=== PATIENT | female | born 1930 | race Caucasian/White ===

== ENCOUNTER 2017-07-03 15:46 | Emergency (ER) | payer MEDICARE, BC ==
[~2017-07-03] VITALS: Wt 74.2 kg
[~2017-07-03 15:46] MED LIST: ALBU8.5H3 INH; AMLO-145 PO; AZIT250T94 PO; BENZ100C70 PO; DONE5TAB7 PO; GUAI118L22 PO; HYDR12.58 PO; MEMA5TAB PO; PRED20TA PO
--- NOTE | 2017-07-03 16:27 | ERD ---
ER Documentation Chief Complaint Chief Complaint u/a and cultures done 07/01 shows UTI, no symptoms but wants abx HPI This is a very pleasant 86-year-old female with a history of hypertension and high cholesterol that presents to the emergency department brought in by her two daughters after outpatient lab work had been obtained on July 01, 2017, 2 days prior to arrival. The patient's primary care physician phone the patient indicated she needed to receive antibiotics. The patient has been experiencing frequency urgency and dysuria for the past 5 days. Denies any hematuria. A urinalysis and urine culture have been performed on an outpatient basis and the results arrived today. The patient had pyuria with 20-25 white blood cells positive leukocytes and positive nitrates and the urinalysis and urine culture that was susceptible to ceftriaxone. The patient has remained afebrile with no shaking or chills. She denies any shortness of breath at rest or exertion. She has had no chest pain or pressure that radiates to the neck arm back or jaw. She denies any abdominal pain. ROS All systems reviewed and are negative except as per history of present illness. Medications Home Meds Active Scripts Albuterol Sulfate* (Proair HFA*) 8.5 Gm Hfa.aer.ad, 2 PUFF INH Q4, #1 INHALER Prov:DEEPA SHERMAN 09/23/15 Benzonatate* (Tessalon Perle*) 100 Mg Capsule, 100 MG PO TID, #20 CAP Prov:DEEPA SHERMAN 09/23/15 Prednisone* (Prednisone*) 20 Mg Tab, 60 MG PO DAILY for 5 Days, TAB Prov:DEEPA SHERMAN 09/23/15 Azithromycin* (Zithromax*) 250 Mg Tablet, 250 MG PO .ERIC DIRECTED, #6 TAB TAKE 500 MG (2 TABS) THE FIRST DAY THEN 250 MG (1 TAB) DAYS 2-5 Prov:DEEPA SHERMAN 09/23/15 Reported Medications Memantine* (Namenda*) 5 Mg Tablet, 5 MG PO DAILY, TAB 08/31/14 Amlodipine Besylate* (Amlodipine Besylate*) 5 Mg Tablet, 5 MG PO DAILY, TAB 08/31/14 Guaifenesin/Codeine Phosphate (CHERATUSSIN AC SYRUP) 118 Ml Liquid, 2 TSP PO TID 08/31/14 Donepezil* (Donepezil*) 5 Mg Tablet, 5 MG PO DAILY, TAB 08/31/14 Hydrochlorothiazide* (Hydrochlorothiazide*) 12.5 Mg Tablet, 12.5 MG PO DAILY, TAB 08/31/14 Allergies Allergies: Coded Allergies: No Known Allergy (Verified , 07/03/17) PMhx/Soc History of Surgery: Yes (appendectomy ) Anesthesia Reaction: No Hx Neurological Disorder: No Hx Respiratory Disorders: No Hx Cardiac Disorders: Yes (HTN. ) Hx Psychiatric Problems: No Hx Miscellaneous Medical Probl: No Hx Alcohol Use: No Hx Substance Use: No Hx Tobacco Use: No Smoking Status: Never smoker Physical Exam Vitals Vital Signs Date Time Temp Pulse Resp B/P Pulse Ox O2 Delivery O2 Flow Rate FiO2 07/03/17 15:48 98.2 83 12 165/70 98 Physical Exam Constitutional:Well-developed. Well-nourished. HEENT:Normocephalic. Atraumatic.Pupils were equal round reactive to light. Moist mucous membranes.No tonsillar exudates. Neck: No nuchal rigidity. No lymphadenopathy. No posterior cervical spine tenderness or step-offs. Respiratory: Not using accessory muscles of respiration.Lungs were clear to auscultation bilaterally. No rhonchi. No rales. No wheezing. Cardiovascular: Regular rate regular rhythm.No murmurs. No rubs were appreciated.S1, S2 normal. Distal pulses are palpable 2+ bilaterally. GI: Abdomen was soft. Nontender. Non Distended. No pulsatile abdominal masses or bruits. No rebound. No guarding. Bowel sounds were present and normal. Muscle skeletal: Full range of motion of both the upper and lower extremities bilaterally.Normal muscle tone.No assymetrical calf tenderness or swelling. Skin: No petechia, no purpura. No lesions on the palms or the soles of the feet. No maculopapular rash. NEURO: Patient was alert, awake, orientated x3.No facial droop. Gait observed and normal with no ataxia.Speech had regular rate and rhythm. No focal neurological deficits. Results 24 hrs Current Medications Medications (Trade) Dose Ordered Sig/John Route PRN Reason Start Time Stop Time Status Last Admin Dose Admin Ceftriaxone Sodium (Rocephin) 50 ml @ 100 mls/hr ONCE ONCE IVPB 07/03/17 16:30 07/03/17 16:59 DC 07/03/17 16:21 Procedures/MDM This is a very pleasant 86-year-old female who is nontoxic in appearance. I did not feel is necessary to obtain any ancillary laboratory work as the patient had her blood work, urinalysis and urine culture performed 2 days prior to arrival. She was given a dose of ceftriaxone intravenously in the emergency department to treat her UTI which was susceptible to this particular antibiotic and sent home with Keflex. The patient was discharged home in fair condition. They were instructed to return to the emergency department at any time if there was any worsening of their condition. The patient stated they would follow up with their PCP in the next 24-48 hours to initiate a suitable medication regimen under the care of their PCP as well as to allow their PCP to monitor any drug reactions. The patient was discharged home with prescriptions after they gave informed consent to the new medication. They were also fully informed by myself on the adverse effects and adverse drug interactions in order to provide adequate safeguards to prevent possible adverse reactions to medications. Departure Diagnosis: Primary Impression: Urinary tract infection Urinary tract infection type: acute cystitis Hematuria presence: without hematuria Qualified Code: N30.00 - Acute cystitis without hematuria Condition: Fair DEEPA SHERMAN Jul 03, 2017 16:27
[2017-07-03] MEDS ORDERED: CEFTRIAXONE 1 GM/50 ML (PMX) 50 ML IVPB ONE (16:30)
[2017-07-03] MEDS ORDERED: CEPH-443 PO (17:19)
== END 2017-07-03 17:40 | disposition home or self-care (01) ==
LOC: FTE 15:46
DX: N30.00 Acute cystitis without hematuria (principal); I10 Essential (primary) hypertension
CPT/HCPCS: 96374; 99284; J0696